=== PATIENT | female | born 1955 | race Hispanic/Latino ===

== ENCOUNTER 2023-04-20 20:40 | Emergency (ER) | payer OTHER ==
[~2023-04-20] VITALS: Ht 152.4 cm; Wt 81.6 kg
[2023-04-20 21:27] LABS: BASOPHILS % (AUTO) 0.4 % (0.0-5.0); EOSINOPHILS % (AUTO) 0.7 % (0.0-8.0); HEMATOCRIT 42.5 % (36-48); LYMPHOCYTES % (AUTO) 52.5 % (21.0-51.0); MEAN CORPUSCULAR HEMOGLOBIN 29.6 pg (27.0-33.0); MEAN CORPUSCULAR HGB CONC 32.7 g/dL (32.0-36.0); MEAN CORPUSCULAR VOLUME 90.4 fL (79-99); MONOCYTES % (AUTO) 6.4 % (3.0-13.0); NEUTROPHILS % (AUTO) 39.5 % (40.0-77.0); PLATELET COUNT (AUTO) 182 K/uL (130-400); WHITE BLOOD COUNT (AUTO) 8.5 K/uL (4.8-10.8)
[2023-04-20] MEDS ORDERED: IOHEXOL 350 MG/ML 100ML INFUS..BTL IV ONE (21:34)
[2023-04-20 21:41] LABS: INR 0.96 (0.85-1.15); PROTHROMBIN TIME 10.5 SEC (9.6-11.6)
[2023-04-20 21:42] LABS: CREATININE 0.6 mg/dL (0.5-1.5); POTASSIUM 3.7 mmol/L (3.5-5.1)
[2023-04-20 21:43] LABS: PARTIAL THROMBOPLASTIN TIME 26.1 SEC (26.3-35.5)
[2023-04-20 21:44] LABS: ALBUMIN 4.1 g/dL (3.5-5.0); TOTAL PROTEIN, SERUM 7.9 g/dL (6.0-8.3)
[2023-04-20 21:51] LABS: B-TYPE NATRIURETIC PEPTIDE 24 pg/mL (0-100)
[2023-04-20 22:00] VITALS: BP 132/68
[2023-04-20] MEDS ORDERED: PRED20TA3 PO (22:20)
[2023-04-20] MEDS ORDERED: VALA10002 PO (22:26)
== END 2023-04-20 22:47 | disposition home or self-care (01) ==
LOC: EDH 20:40
DX: G51.0 Bell's palsy (principal); I10 Essential (primary) hypertension; E11.9 Type 2 diabetes mellitus without complications; E78.00 Pure hypercholesterolemia, unspecified
CPT/HCPCS: 99285; 70496; 71045; 82550; 83721; 84484; 80053; 83880; 85025; 85610; 85730; 36415; 70498; 93005; 70450; Q9967